=== PATIENT | female | born 1950 | race Caucasian/White ===

== ENCOUNTER 2018-02-28 06:40 | Day surgery (SDC) | payer MEDICARE ==
[~2018-02-28] VITALS: Ht 162.6 cm; Wt 95.3 kg
[~2018-02-28 06:40] MED LIST: ALEVE220 M2 PO; AMLODIPINE5 MG PO; AMOXICILLIN500 M1 OR; ANTIVERT PO; ASPIRIN325 MG PO; CELEBREX100 M1 PO; CLARITIN10 MG OR; FLORASTOR250 M1 PO; ISOSORB MONO120 MG PO; LIPITOR40 M1 PO; LOMOTIL2.5 MG PO; LOPRESSOR50 MG OR; LORTAB 10-325 M1 TAB PO; METHOCARBAMOL PO; METOPROL TAR25 M1 PO; METRONIDAZOL500 MG PO; NEXIUM20 M1 OR; NITROGLYCERIN; NITROSTAT0.3 MG SL; NITROSTAT0.4 MG SL; NORCO1 TA1 PO; ONDANSETRON4 MG PO; PANTOPRAZOLE SO40 MG PO; PERCOCET 5/325M1 TAB PO; PHENERGAN25 MG/TAB PO; PLAVIX75 MG OR; PRILOSEC20 MG OR; PROZAC20 M1 PO; RISEDRONATE SO150 MG PO; TRAMADOL HCL50 MG PO; ZOCOR40 MG OR; ZOFRAN ODT4 MG PO; [UNRECOGNIZED DRUG - OTHER] PO
[2018-02-28] MEDS ORDERED: BACK & BODY EXT1 TAB PO (06:50)
[2018-02-28] MEDS ORDERED: CLARITIN-D1 TA2 PO (06:50)
[2018-02-28 08:56] VITALS: BP 135/60
== END 2018-02-28 09:02 | disposition home or self-care (01) ==
LOC: ENDO 06:40
PROVIDERS: ATTEND Surgery
PROC: 0DJD8ZZ Inspection of Lower Intestinal Tract, Via Natural or Artificial Opening Endoscopic (ICD-10-PCS; principal; 2018-02-28)
DX: Z12.11 Encounter for screening for malignant neoplasm of colon (principal); K64.1 Second degree hemorrhoids; Z86.010 Personal history of colon polyps

== ENCOUNTER 2018-08-07 10:49 | Emergency (ER) | payer MEDICARE ==
[~2018-08-07] VITALS: Ht 162.6 cm; Wt 80.0 kg
[~2018-08-07 10:49] MED LIST changes: +BACK & BODY EXT1 TAB PO; +CLARITIN-D1 TA2 PO
[2018-08-07 12:00] VITALS: BP 137/68
== END 2018-08-07 12:00 | disposition home or self-care (01) ==
LOC: ED 10:49
DX: S80.811A Abrasion, right lower leg, initial encounter (principal); W54.0XXA Bitten by dog, initial encounter; Y93.89 Activity, other specified; Y92.007 Garden or yard of unspecified non-institutional (private) residence as the place of occurrence of the external cause

== ENCOUNTER 2019-02-24 11:03 | Observation (INO) | payer MEDICARE ==
[~2019-02-24] VITALS: Ht 162.6 cm; Wt 95.4 kg
--- NOTE | 2019-02-24 11:06 | NUR ---
PATIENT BACK TO ROOM FOR EXAM.
--- NOTE | 2019-02-24 11:40 | NUR ---
PATIENT MEDICATED WITH 4 MG OF ZOFRAN IV FOR NAUSEA, 0.4 SL NITRO, AND ASPIRIN 324 MG PO. PATIENT REPORTS LEFT SIDED CHEST PAIN FOR PAST COUPLE OF WEEKS WITH SOB AND PAIN RADIATING TO LEFT SHOULDER AND NECK. RATES PAIN 5/10. LUNG SOUNDS CLEAR BILATERALLY. PATIENT UPDATED ON WAIT TIME. WILL CONTINUE TO MONITOR. CALL LIGHT WITHIN REACH.
[2019-02-24 11:47] LABS: HEMATOCRIT 40.2 % (37.0-47.0); HEMOGLOBIN 13.3 g/dl (12.0-16.0); IMMATURE GRANULOCYTES 0.2 % (0.0-5.0); MEAN CELL VOLUME 96.9 fL CALC (80.0-100.0); MEAN CORPUSCULAR HGB CONC 33.1 g/L CALC (32.0-36.0); NEUT# 2.34 thou/uL (2.00-7.15); RED BLOOD COUNT 4.15 mill/uL (4.20-5.60); RED CELL DISTRI WIDTH 12.2 % (11.5-15.5)
[2019-02-24] MEDS ORDERED: METOPROL TAR25 MG PO (11:47)
[2019-02-24] MEDS ORDERED: ISOSORBIDE MON120 MG PO (11:47)
[2019-02-24] MEDS ORDERED: PROZAC10 MG PO (11:49)
[2019-02-24] MEDS ORDERED: PANTOPRAZOLE SO40 MG PO (11:50)
[2019-02-24] MEDS ORDERED: BUSPAR5 MG PO (11:50)
[2019-02-24 11:52] LABS: ALBUMIN 3.6 g/dL (3.2-5.0); ALKALINE PHOSPHATASE 71 u/l (38-126); ANION GAP 11 (6-22 (CALC)); BILIRUBIN, TOTAL 0.2 mg/dL (0.0-1.4); BUN 16 mg/dL (8-23); BUN/CREATININE RATIO 27 (12-20 (CALC)); CARBON DIOXIDE 25 mmol/l (22-30); CHLORIDE 107 mmol/l (95-108); CREATININE 0.6 mg/dL (0.5-1.0); GFR > 60 ML/MIN (>=60 (CALC)); GFR FOR AFR.AMER. > 60 ML/MIN (>=60 (CALC)); LIPASE 97 u/l (23-300); POTASSIUM 4.4 mmol/l (3.5-5.1); SGOT/AST 17 u/l (9-36); SODIUM 139 mmol/l (137-146); TOTAL PROTEIN 6.4 g/dL (6.3-8.2)
--- NOTE | 2019-02-24 12:23 | NUR ---
PATIENT REPORTS NO CHANGE IN LEFT SIDED CHEST PAIN. RATES 03/24. INFORMED. AWAITING ON NEW ORDERS.
--- NOTE | 2019-02-24 12:27 | NUR ---
AT BEDSIDE TO DISCUSS RESULTS AND PLAN OF CARE.
--- NOTE | 2019-02-24 12:35 | NUR ---
PATIENT MEDICATED WITH 0.4 MG SL NITRO AND SECOND EKG COMPLETED.
--- NOTE | 2019-02-24 13:30 | NUR ---
PATIENT RESTING ON STRETCHER. NO SIGNS OF DISTRESS NOTED. FRIEND AT BEDSIDE.
--- NOTE | 2019-02-24 14:15 | NUR ---
PATIENT REPORT NO CHEST PAIN AT THIS TIME. INFORMED OF ADMIT. VERBAL UNDERSTANDING.
--- NOTE | 2019-02-24 14:23 | NUR ---
REPORT GIVEN TO [facility].
--- NOTE | 2019-02-24 14:25 | NUR ---
PATIENT TRANSPORTED TO [facility] VIA STRETCHER WITH TELE IN PLACE, BELONGINGS SENT UP WITH PATIENT. JU[facility] D[facility] AT BEDSIDE. CARE RELINQUISHED.
[2019-02-24 14:30] VITALS: BP 119/63
--- NOTE | 2019-02-24 15:00 | NUR ---
ASSESSMENT DONE. RESPS EVEN AND UNLABORED. PT IS A&O X3. PT STATED PAIN 2/10 LEFT SIDE CHEST. PT STATED SHE FEELS NAUSEOUS. TELE IN PLACE. NOTIIFIED RE: PT C/O DR. LINARES AT BEDSIDE TO ASSESS PT. PT STATED SHE HAS BEEN HAVING BLACK STOOL. SAFETY PRECAUTIONS REINFORCED AND CALL LIGHT IN REACH.
[2019-02-24 17:09] VITALS: BP 118/54
--- NOTE | 2019-02-24 19:00 | NUR ---
RECIEVED REPORT FROM DAY SHIFT NURSE. PT RESTING IN BED WATCHING TV. NO NEEDS A THIS TIME. CALL STACY IN REACH. WILL CONTINUE TO MONITOR.
[2019-02-24 19:40] VITALS: BP 107/61
--- NOTE | 2019-02-24 19:50 | NUR ---
PT RESTING IN BED WATCHING TV. PT IS A&O x3. ASSESMENT COMPLETED AT THIS TIME. TRACE EDEMA TO LOWER EXTREMITIES. NO NEEDS A THIS TIME. WILL CONTINUE TO MONITOR
--- NOTE | 2019-02-24 20:07 | NUR ---
PT C/O OF EPIGASTRIC PAIN THAT RADIATES INTO CHEST. PT THINK ITS HER STOMACH AND NON CARDIAC. WOULD LIKE SOMETHING. DR SOLIS NOTIFIED AND NEW ORDERS RECIEVED. WILL CONTINUE TO MONITOR.
--- NOTE | 2019-02-24 21:00 | NUR ---
PT MEDICATE PER ORDER FOR EPIGASTRIC PAIN. CALL STACY IN REACH. WILL CONTINUE TO MONITOR.
[2019-02-24 23:45] VITALS: BP 105/59
--- NOTE | 2019-02-25 | NUR ---
PT RESTING IN BED WITH EYES CLOSED. NO S/S OF DISTRESS NOTED. CALL STACY IN REACH. WILL CONTINUE TO MONITOR.
--- NOTE | 2019-02-25 04:00 | NUR ---
PT STATES SHE GOT RELIEF FROM PEPCID AND WAS ABLE TO SLEEP WELL. NO NEED AT THIS TIME. CALL STACY IN REACH. WILL CONTINUE TO MONITOR.
[2019-02-25 04:42] VITALS: BP 117/54
[2019-02-25 05:53] LABS: HEMATOCRIT 39.6 % (37.0-47.0); IMMATURE GRANULOCYTES 0.2 % (0.0-5.0); MEAN CELL VOLUME 97.3 fL CALC (80.0-100.0); MEAN CORPUSCULAR HGB 31.9 pG CALC (26.0-32.0); MEAN CORPUSCULAR HGB CONC 32.8 g/L CALC (32.0-36.0); NEUT# 2.21 thou/uL (2.00-7.15); RED BLOOD COUNT 4.07 mill/uL (4.20-5.60); RED CELL DISTRI WIDTH 12.4 % (11.5-15.5)
[2019-02-25 06:04] LABS: ALBUMIN 3.6 g/dL (3.2-5.0); ALKALINE PHOSPHATASE 70 u/l (38-126); AMYLASE 53 u/l (30-110); ANION GAP 11 (6-22 (CALC)); BILIRUBIN, TOTAL 0.3 mg/dL (0.0-1.4); BUN 15 mg/dL (8-23); BUN/CREATININE RATIO 22 (12-20 (CALC)); CARBON DIOXIDE 27 mmol/l (22-30); CHLORIDE 107 mmol/l (95-108); CREATININE 0.7 mg/dL (0.5-1.0); GFR > 60 ML/MIN (>=60 (CALC)); GFR FOR AFR.AMER. > 60 ML/MIN (>=60 (CALC)); LIPASE 85 u/l (23-300); MAGNESIUM 1.8 mg/dL (1.6-2.3); POTASSIUM 4.2 mmol/l (3.5-5.1); SGOT/AST 19 u/l (9-36); SODIUM 140 mmol/l (137-146); TOTAL PROTEIN 6.3 g/dL (6.3-8.2)
--- NOTE | 2019-02-25 07:00 | NUR ---
SHIFT CHANGE REPORT, PT AWAKE ALERT AND ORIENTED RESTING IN BED, C/O ACHING HEADACHE @ 05/24, DR SOLIS NOTIFIED AND GAVE ORDERS, TELE MONITOR IN PLACE, PAIN CONCERN ADDRESSED, CALL STACY IN REACH.
[2019-02-25 08:42] VITALS: BP 127/52
[2019-02-25 09:14] LABS: CHOLESTEROL HDL RATIO 3.8 (<4.4 (CALC))
[2019-02-25 12:08] VITALS: BP 121/66
--- NOTE | 2019-02-25 12:18 | NUR ---
RELAXING IN BED TALKING TO VISITING FAMILY MEMBER, C/O NAUSEA AND ALSO STATED SHE NEEDED ANTIEMETIC BEFORE SHE ATE MEAL TO PREVENT NAUSED. CONCERN ADDRESSED WILL CONTINUE TO MONITOR.
--- NOTE | 2019-02-25 16:07 | NUR ---
RELAXING IN ROOM, ALL NEEDS ADDRESSED.
[2019-02-25 17:39] VITALS: BP 127/55
--- NOTE | 2019-02-25 19:00 | NUR ---
RECIEVED REPORT FROM DAY NURSE PT RESTING IN THE RECLINER. NO NEEDS AT THIS TIME. CALL STACY IN REACH. WILL KOURTNEY NUE TO MONITOR.
[2019-02-25 19:39] VITALS: BP 111/67
--- NOTE | 2019-02-25 22:46 | NUR ---
PT RESTING IN BED WITH EYES CLOESED. WAKES WITH VERBAL STIMULI. MEDICATED PER ORDER. ASSESMENT COMPLETED AT THIS TIME. NO NEEDS AT THIS TIME, CALL STACY IN REACH. WILL CONTINUE TO MONITOR.
[2019-02-26] VITALS: BP 113/65
--- NOTE | 2019-02-26 | NUR ---
PT RESTING IN BED WITH EYES CLOSED, NO S/S OF DISTRESS NOTED. WILL CONTINUE TO MONITOR
--- NOTE | 2019-02-26 04:00 | NUR ---
PT APPEARS ASLEEP AT THIS TIME. CALL REGIS IN [facility]. WILL CONTINUE TO MONITOR.
[2019-02-26 04:25] VITALS: BP 115/63
[2019-02-26 05:20] LABS: HEMATOCRIT 41.3 % (37.0-47.0); HEMOGLOBIN 13.6 g/dl (12.0-16.0); IMMATURE GRANULOCYTES 0.2 % (0.0-5.0); MEAN CELL VOLUME 98.1 fL CALC (80.0-100.0); MEAN CORPUSCULAR HGB 32.3 pG CALC (26.0-32.0); MEAN CORPUSCULAR HGB CONC 32.9 g/L CALC (32.0-36.0); NEUT# 2.65 thou/uL (2.00-7.15); RED BLOOD COUNT 4.21 mill/uL (4.20-5.60); RED CELL DISTRI WIDTH 12.3 % (11.5-15.5)
[2019-02-26 05:54] LABS: ANION GAP 12 (6-22 (CALC)); BUN 16 mg/dL (8-23); BUN/CREATININE RATIO 20 (12-20 (CALC)); CARBON DIOXIDE 28 mmol/l (22-30); CHLORIDE 106 mmol/l (95-108); CREATININE 0.8 mg/dL (0.5-1.0); GFR > 60 ML/MIN (>=60 (CALC)); GFR FOR AFR.AMER. > 60 ML/MIN (>=60 (CALC)); MAGNESIUM 2.1 mg/dL (1.6-2.3); SODIUM 141 mmol/l (137-146)
[2019-02-26 06:06] LABS: POTASSIUM 5.4 mmol/l (3.5-5.1)
--- NOTE | 2019-02-26 07:00 | NUR ---
SHIFT CHANGE REPORT, PT SLEEPING BUT AWAKENED TO VERBAL STIMULI, C/O HEADACHE AND MEDICATED, TELE MONITOR IN PLACE, CALL STACY IN REACH.
[2019-02-26 07:45] VITALS: BP 109/56
[2019-02-26 11:11] VITALS: BP 101/58
--- NOTE | 2019-02-26 12:27 | NUR ---
RESTING IN BED AND HAVING MEAL, ALL NEEDS ADDRESSED.
[2019-02-26] MEDS ORDERED: ISOSORBIDE MONO30 MG PO (12:36)
[2019-02-26] MEDS ORDERED: PANTOPRAZOLE SO40 M1 PO (12:37)
[2019-02-26] MEDS ORDERED: NITROGLYCE0.4 MG/SPR SL (13:44)
[2019-02-26] MEDS ORDERED: ZOFRAN4 MG PO (15:37)
--- NOTE | 2019-02-26 15:52 | NUR ---
Discharge instructions given. Patient verbalizes understanding of same. Discharged in good condition via Wheelchair to Home with family. All belongings sent with pt.
[2019-02-26 16:12] LABS: URINE BILIRUBIN - DIPSTICK NEGATIVE (NEGATIVE); URINE BLOOD DIPSTICK NEGATIVE (NEGATIVE); URINE COLOR YELLOW; URINE GLUCOSE - DIPSTICK NEGATIVE (NEGATIVE); URINE KETONE NEGATIVE (NEGATIVE); URINE LEUK ESTERASE NEGATIVE (NEGATIVE); URINE NITRITE - DIPSTICK NEGATIVE (Negative); URINE PH 5.5 (4.5-8.0); URINE PROTEIN - DIPSTICK NEGATIVE (NEG-TRACE); URINE UROBILINOGEN - DIPSTICK 0.2 E.U./dL (0.2)
== END 2019-02-26 15:42 | disposition home or self-care (01) ==
LOC: ED 11:03 → ED-I 12:18 → ED 13:26 → MS2 13:27
PROVIDERS: Family Medicine; Nurse Practitioner Family; ADMIT Internal Medicine Nephrology; ATTEND Internal Medicine Nephrology
DX: R07.9 Chest pain, unspecified (principal); K22.4 Dyskinesia of esophagus; I25.119 Atherosclerotic heart disease of native coronary artery with unspecified angina pectoris; I10 Essential (primary) hypertension; F41.8 Other specified anxiety disorders; E78.5 Hyperlipidemia, unspecified; K59.00 Constipation, unspecified; Z23 Encounter for immunization; Z87.11 Personal history of peptic ulcer disease; Z95.5 Presence of coronary angioplasty implant and graft; Z86.73 Personal history of transient ischemic attack (TIA), and cerebral infarction without residual deficits
CPT/HCPCS: J1650

== ENCOUNTER 2019-03-22 14:40 | Inpatient (IN) | payer MEDICARE ==
[~2019-03-22] VITALS: Ht 162.6 cm; Wt 94.0 kg
[~2019-03-22 14:40] MED LIST changes: +BUSPAR5 MG PO; +ISOSORBIDE MON120 MG PO; +ISOSORBIDE MONO30 MG PO; +METOPROL TAR25 MG PO; +NITROGLYCE0.4 MG/SPR SL; +PANTOPRAZOLE SO40 M1 PO; +PROZAC10 MG PO; +ZOFRAN4 MG PO
[2019-03-22 15:21] LABS: HEMATOCRIT 39.7 % (37.0-47.0); HEMOGLOBIN 12.9 g/dl (12.0-16.0); IMMATURE GRANULOCYTES 0.3 % (0.0-5.0); MEAN CELL VOLUME 98.5 fL CALC (80.0-100.0); MEAN CORPUSCULAR HGB CONC 32.5 g/L CALC (32.0-36.0); NEUT# 6.36 thou/uL (2.00-7.15); RED BLOOD COUNT 4.03 mill/uL (4.20-5.60); RED CELL DISTRI WIDTH 12.2 % (11.5-15.5)
[2019-03-22 15:40] LABS: ANION GAP 11 (6-22 (CALC)); BUN 16 mg/dL (8-23); BUN/CREATININE RATIO 27 (12-20 (CALC)); CARBON DIOXIDE 27 mmol/l (22-30); CHLORIDE 106 mmol/l (95-108); CREATININE 0.6 mg/dL (0.5-1.0); GFR > 60 ML/MIN (>=60 (CALC)); GFR FOR AFR.AMER. > 60 ML/MIN (>=60 (CALC)); POTASSIUM 4.2 mmol/l (3.5-5.1); SODIUM 139 mmol/l (137-146)
[2019-03-22 17:50] VITALS: BP 166/83
[2019-03-22 18:37] LABS: URINE BILIRUBIN - DIPSTICK NEGATIVE (NEGATIVE); URINE BLOOD DIPSTICK NEGATIVE (NEGATIVE); URINE COLOR YELLOW; URINE GLUCOSE - DIPSTICK NEGATIVE (NEGATIVE); URINE KETONE NEGATIVE (NEGATIVE); URINE NITRITE - DIPSTICK NEGATIVE (Negative); URINE PROTEIN - DIPSTICK NEGATIVE (NEG-TRACE); URINE UROBILINOGEN - DIPSTICK 0.2 E.U./dL (0.2)
[2019-03-22 18:38] LABS: URINE LEUK ESTERASE SMALL (NEGATIVE)
[2019-03-22 18:57] LABS: URINE RBC 0-2 RBC/hpf (0-5); URINE SQUAMOUS EPITHELIAL CELL FEW EPI/hpf (0-FEW)
[2019-03-22 21:42] VITALS: BP 136/79
[2019-03-23 00:13] VITALS: BP 141/71
[2019-03-23 04:07] VITALS: BP 160/83
[2019-03-23 05:20] LABS: HEMATOCRIT 41.2 % (37.0-47.0); HEMOGLOBIN 13.6 g/dl (12.0-16.0); IMMATURE GRANULOCYTES 0.9 % (0.0-5.0); MEAN CELL VOLUME 96.5 fL CALC (80.0-100.0); MEAN CORPUSCULAR HGB 31.9 pG CALC (26.0-32.0); NEUT# 5.55 thou/uL (2.00-7.15); RED BLOOD COUNT 4.27 mill/uL (4.20-5.60); RED CELL DISTRI WIDTH 12.1 % (11.5-15.5)
[2019-03-23 05:23] LABS: ALBUMIN 3.6 g/dL (3.2-5.0); ALKALINE PHOSPHATASE 91 u/l (38-126); AMYLASE 49 u/l (30-110); ANION GAP 13 (6-22 (CALC)); BILIRUBIN, TOTAL 0.4 mg/dL (0.0-1.4); BUN 10 mg/dL (8-23); BUN/CREATININE RATIO 22 (12-20 (CALC)); CARBON DIOXIDE 23 mmol/l (22-30); CHLORIDE 107 mmol/l (95-108); CREATININE 0.5 mg/dL (0.5-1.0); GFR > 60 ML/MIN (>=60 (CALC)); GFR FOR AFR.AMER. > 60 ML/MIN (>=60 (CALC)); LIPASE 58 u/l (23-300); MAGNESIUM 1.8 mg/dL (1.6-2.3); POTASSIUM 4.5 mmol/l (3.5-5.1); SGOT/AST 19 u/l (9-36); SODIUM 138 mmol/l (137-146); TOTAL PROTEIN 6.6 g/dL (6.3-8.2)
[2019-03-23 08:43] VITALS: BP 151/62
[2019-03-23] MEDS ORDERED: NITROSTAT0.4 MG SL (11:33)
[2019-03-23] MEDS ORDERED: ISOSORB MONO30 MG PO (11:34)
[2019-03-23] MEDS ORDERED: EXCEDRIN PO (11:35)
[2019-03-23] MEDS ORDERED: MELATONIN5 MG PO (11:36)
[2019-03-23 11:53] VITALS: BP 160/70
[2019-03-23 15:10] VITALS: BP 123/64
[2019-03-23 19:40] VITALS: BP 121/71
[2019-03-24] VITALS: BP 133/71
[2019-03-24 04:13] VITALS: BP 144/81
[2019-03-24 05:20] LABS: HEMOGLOBIN 12.6 g/dl (12.0-16.0); IMMATURE GRANULOCYTES 0.9 % (0.0-5.0); MEAN CELL VOLUME 97.2 fL CALC (80.0-100.0); MEAN CORPUSCULAR HGB 32.2 pG CALC (26.0-32.0); MEAN CORPUSCULAR HGB CONC 33.2 g/L CALC (32.0-36.0); NEUT# 11.22 thou/uL (2.00-7.15); RED BLOOD COUNT 3.91 mill/uL (4.20-5.60); RED CELL DISTRI WIDTH 12.6 % (11.5-15.5)
[2019-03-24 05:45] LABS: ALBUMIN 3.4 g/dL (3.2-5.0); ALKALINE PHOSPHATASE 78 u/l (38-126); ANION GAP 12 (6-22 (CALC)); BUN 15 mg/dL (8-23); BUN/CREATININE RATIO 29 (12-20 (CALC)); CARBON DIOXIDE 24 mmol/l (22-30); CHLORIDE 108 mmol/l (95-108); CREATININE 0.5 mg/dL (0.5-1.0); GFR > 60 ML/MIN (>=60 (CALC)); GFR FOR AFR.AMER. > 60 ML/MIN (>=60 (CALC)); MAGNESIUM 1.9 mg/dL (1.6-2.3); POTASSIUM 4.7 mmol/l (3.5-5.1); SGOT/AST 15 u/l (9-36); SODIUM 139 mmol/l (137-146); TOTAL PROTEIN 6.2 g/dL (6.3-8.2)
[2019-03-24 05:47] LABS: BILIRUBIN, TOTAL 0.2 mg/dL (0.0-1.4)
[2019-03-24 07:40] VITALS: BP 137/63
[2019-03-24 11:09] VITALS: BP 142/64
[2019-03-24] MEDS ORDERED: MEDDOSEPAK PO (14:48)
[2019-03-24] MEDS ORDERED: DOXYCYCL HYC100 MG PO (14:48)
[2019-03-24] MEDS ORDERED: COMBIVENT RESPIMAT IN (14:49)
== END 2019-03-24 15:16 | disposition home or self-care (01) | DRG 190 ==
LOC: ED 14:40 → ED-I 15:56 → ED 16:09 → MS2 16:10
PROVIDERS: Family Medicine; ADMIT Internal Medicine Nephrology; ATTEND Internal Medicine Nephrology
DX: J44.1 Chronic obstructive pulmonary disease with (acute) exacerbation (principal); J18.9 Pneumonia, unspecified organism; J44.0 Chronic obstructive pulmonary disease with (acute) lower respiratory infection; I10 Essential (primary) hypertension; I25.10 Atherosclerotic heart disease of native coronary artery without angina pectoris; F41.8 Other specified anxiety disorders; K21.9 Gastro-esophageal reflux disease without esophagitis; M19.90 Unspecified osteoarthritis, unspecified site; Z86.73 Personal history of transient ischemic attack (TIA), and cerebral infarction without residual deficits; Z95.5 Presence of coronary angioplasty implant and graft
CPT/HCPCS: G0378; J1650

== ENCOUNTER 2020-09-18 19:12 | Emergency (ER) | payer MEDICARE ==
[~2020-09-18] VITALS: Ht 162.6 cm; Wt 90.0 kg
[~2020-09-18 19:12] MED LIST changes: +COMBIVENT RESPIMAT IN; +DOXYCYCL HYC100 MG PO; +EXCEDRIN PO; +ISOSORB MONO30 MG PO; +MEDDOSEPAK PO; +MELATONIN5 MG PO
[2020-09-18] MEDS ORDERED: TRAMADOL HYDROC50 MG PO (21:31)
[2020-09-18 21:45] VITALS: BP 158/52
== END 2020-09-18 21:50 | disposition home or self-care (01) ==
LOC: ED 19:12
DX: M47.817 Spondylosis without myelopathy or radiculopathy, lumbosacral region (principal); M17.12 Unilateral primary osteoarthritis, left knee; I10 Essential (primary) hypertension; I25.10 Atherosclerotic heart disease of native coronary artery without angina pectoris; I25.2 Old myocardial infarction; K21.9 Gastro-esophageal reflux disease without esophagitis; Z95.5 Presence of coronary angioplasty implant and graft

== ENCOUNTER 2021-10-18 12:17 | Emergency (ER) | payer MEDICARE ==
[~2021-10-18] VITALS: Ht 162.6 cm; Wt 100.0 kg
[~2021-10-18 12:17] MED LIST changes: +B COMPLE2 PO; +TRAMADOL HYDROC50 MG PO; +VITA D-1000 PO
[2021-10-18 12:47] LABS: HEMATOCRIT 43.9 % (37.0-47.0); HEMOGLOBIN 14.4 g/dl (12.0-16.0); IMMATURE GRANULOCYTES 0.6 % (0.0-5.0); MEAN CELL VOLUME 99.8 fL CALC (80.0-100.0); MEAN CORPUSCULAR HGB 32.7 pG CALC (26.0-32.0); MEAN CORPUSCULAR HGB CONC 32.8 g/dL CAL (32.0-36.0); NEUT# 5.94 thou/uL (2.00-7.15); RED BLOOD COUNT 4.4 mill/uL (4.20-5.60); RED CELL DISTRI WIDTH 12.4 % (11.5-15.5)
[2021-10-18 13:05] LABS: ALBUMIN 3.7 g/dL (3.2-5.0); ALKALINE PHOSPHATASE 62 u/l (38-126); ANION GAP 10 (6-22 (CALC)); BILIRUBIN, TOTAL 0.4 mg/dL (0.0-1.4); BUN 18 mg/dL (8-23); BUN/CREATININE RATIO 25 (12-20 (CALC)); CARBON DIOXIDE 26 mmol/l (22-30); CHLORIDE 106 mmol/l (95-108); CREATININE 0.7 mg/dL (0.5-1.0); GFR > 60 ML/MIN (>=60 (CALC)); GFR FOR AFR.AMER. > 60 ML/MIN (>=60 (CALC)); LIPASE 98 u/l (23-300); POTASSIUM 3.9 mmol/l (3.5-5.1); SGOT/AST 25 u/l (9-36); SODIUM 139 mmol/l (137-146); TOTAL PROTEIN 7.2 g/dL (6.3-8.2)
[2021-10-18] MEDS ORDERED: GUAIFENESIN AC PO (13:53)
[2021-10-18] MEDS ORDERED: ALBUTEROL SUL0.083 % IN (13:53)
[2021-10-18 14:11] VITALS: BP 161/71
== END 2021-10-18 14:40 | disposition home or self-care (01) ==
LOC: ED 12:17
DX: J45.909 Unspecified asthma, uncomplicated (principal); I10 Essential (primary) hypertension; I25.10 Atherosclerotic heart disease of native coronary artery without angina pectoris; K21.9 Gastro-esophageal reflux disease without esophagitis; I25.2 Old myocardial infarction; Z86.73 Personal history of transient ischemic attack (TIA), and cerebral infarction without residual deficits; Z95.5 Presence of coronary angioplasty implant and graft; Z20.822 Contact with and (suspected) exposure to COVID-19

== ENCOUNTER 2022-05-20 11:14 | Emergency (ER) | payer MEDICARE ==
[~2022-05-20] VITALS: Ht 162.6 cm; Wt 100.0 kg
[~2022-05-20 11:14] MED LIST changes: +ALBUTEROL SUL0.083 % IN; +GUAIFENESIN AC PO
[2022-05-20 12:02] LABS: HEMATOCRIT 42.9 % (37.0-47.0); HEMOGLOBIN 13.9 g/dl (12.0-16.0); IMMATURE GRANULOCYTES 0.2 % (0.0-5.0); MEAN CELL VOLUME 101.4 fL CALC (80.0-100.0); MEAN CORPUSCULAR HGB 32.9 pG CALC (26.0-32.0); MEAN CORPUSCULAR HGB CONC 32.4 g/dL CAL (32.0-36.0); NEUT# 1.99 thou/uL (2.00-7.15); RED BLOOD COUNT 4.23 mill/uL (4.20-5.60); RED CELL DISTRI WIDTH 12.3 % (11.5-15.5)
[2022-05-20 12:09] LABS: ALBUMIN 3.9 g/dL (3.2-5.0); ALKALINE PHOSPHATASE 51 u/l (38-126); ANION GAP 9 (6-22 (CALC)); BUN 15 mg/dL (8-23); BUN/CREATININE RATIO 22 (12-20 (CALC)); CARBON DIOXIDE 24 mmol/l (22-30); CHLORIDE 111 mmol/l (95-108); CREATININE 0.7 mg/dL (0.5-1.0); GFR FOR AFR.AMER. > 60 ML/MIN (>=60 (CALC)); GFR OTHER RACES > 60 ML/MIN (>=60 (CALC)); POTASSIUM 4.4 mmol/l (3.5-5.1); SGOT/AST 26 u/l (9-36); SODIUM 139 mmol/l (137-146)
[2022-05-20 12:11] LABS: BILIRUBIN, TOTAL 0.4 mg/dL (0.0-1.4)
[2022-05-20] MEDS ORDERED: ZOFRAN4 MG/TAB PO (14:04)
[2022-05-20 14:39] VITALS: BP 132/51
== END 2022-05-20 14:43 | disposition home or self-care (01) ==
LOC: ED 11:14
PROVIDERS: Family Medicine
DX: S06.0X0A Concussion without loss of consciousness, initial encounter (principal); M25.512 Pain in left shoulder; I10 Essential (primary) hypertension; I25.10 Atherosclerotic heart disease of native coronary artery without angina pectoris; I25.2 Old myocardial infarction; K21.9 Gastro-esophageal reflux disease without esophagitis; W18.39XA Other fall on same level, initial encounter; Y92.008 Other place in unspecified non-institutional (private) residence as the place of occurrence of the external cause; Z95.5 Presence of coronary angioplasty implant and graft; Z86.73 Personal history of transient ischemic attack (TIA), and cerebral infarction without residual deficits

== ENCOUNTER 2023-02-09 11:58 | Emergency (ER) | payer MEDICARE ==
[~2023-02-09 11:58] MED LIST changes: +ZOFRAN4 MG/TAB PO
== END 2023-02-09 14:26 | disposition home or self-care (01) ==
LOC: ED 11:58 → LWOBS 12:40
DX: Z53.21 Procedure and treatment not carried out due to patient leaving prior to being seen by health care provider (principal)

== ENCOUNTER 2023-06-07 16:38 | Emergency (ER) | payer MEDICARE ==
[~2023-06-07] VITALS: Ht 162.6 cm; Wt 95.0 kg
[2023-06-07 17:00] VITALS: BP 124/73
[2023-06-07 17:17] VITALS: BP 98/58
[2023-06-07 17:30] VITALS: BP 114/55
[2023-06-07 17:46] VITALS: BP 141/47
[2023-06-07] MEDS ORDERED: NAPROXEN500 MG PO (17:56)
[2023-06-07] MEDS ORDERED: METHOCARBAMOL500 MG PO (17:56)
[2023-06-07] MEDS ORDERED: MEDDOSEPAK PO (17:56)
[2023-06-07 18:15] VITALS: BP 126/75
[2023-06-07 18:16] VITALS: BP 126/75
== END 2023-06-07 18:43 | disposition home or self-care (01) ==
LOC: ED 16:38
DX: S70.02XA Contusion of left hip, initial encounter (principal); M51.17 Intervertebral disc disorders with radiculopathy, lumbosacral region; I10 Essential (primary) hypertension; I25.10 Atherosclerotic heart disease of native coronary artery without angina pectoris; I25.2 Old myocardial infarction; W17.89XA Other fall from one level to another, initial encounter; Y92.009 Unspecified place in unspecified non-institutional (private) residence as the place of occurrence of the external cause; Z86.73 Personal history of transient ischemic attack (TIA), and cerebral infarction without residual deficits; Z95.5 Presence of coronary angioplasty implant and graft

== ENCOUNTER 2024-05-24 12:35 | Observation (INO) | payer MEDICARE ==
[~2024-05-24] VITALS: Ht 157.5 cm; Wt 94.4 kg
[2024-05-24] VITALS (22 sets, daily range): BP systolic 124–172; BP diastolic 42–83
[~2024-05-24 12:35] MED LIST changes: +KEFLEX500 MG PO; +METHOCARBAMOL500 MG PO; +MUPIROCIN2 % EX; +NAPROXEN500 MG PO; +TRAMADOL HYDROC50 M1 PO
--- NOTE | 2024-05-24 12:38 | NUR ---
PATIENT TO ROOM 9 VIA WHEELCHAIR
[2024-05-24] MEDS ORDERED: NITROGLYCERIN 0.4 MG/TAB SL ONE (12:50)
[2024-05-24] MEDS ORDERED: ASPIRIN 81 MG/TAB PO ONE (12:50)
[2024-05-24 13:08] LABS: BASO% 0.4 % (0-3); EOS% 1.2 % (0-8); HEMOGLOBIN 13.6 g/dl (12.0-16.0); LYMPH% 46.2 % (15-41); MEAN CELL VOLUME 98.8 fL CALC (80.0-100.0); MEAN CORPUSCULAR HGB 32.8 pG CALC (26.0-32.0); MEAN CORPUSCULAR HGB CONC 33.2 g/dL CAL (32.0-36.0); MONO% 9.3 % (2-13); NEUT# 2.41 thou/uL (2.00-7.15); NEUT% 42.9 % (42-76); RED BLOOD COUNT 4.15 mill/uL (4.20-5.60); RED CELL DISTRI WIDTH 12.3 % (11.5-15.5)
[2024-05-24] MEDS ORDERED: PROTONIX40 M2 PO (13:11)
[2024-05-24 13:25] LABS: ALBUMIN 3.8 g/dL (3.2-5.0); ALKALINE PHOSPHATASE 59 u/l (38-126); ANION GAP 9 (6-22 (CALC)); BILIRUBIN, TOTAL 0.6 mg/dL (0.02-1.3); BUN 14 mg/dL (8-23); BUN/CREATININE RATIO 16 (12-20 (CALC)); CARBON DIOXIDE 23 mmol/l (22-30); CHLORIDE 112 mmol/l (95-108); CREATININE 0.9 mg/dL (0.5-1.0); ESTIMATED GFR 68 ML/MIN (>=90 (CALC)); LIPASE 79 u/l (23-300); POTASSIUM 4.8 mmol/l (3.5-5.1); SGOT/AST 31 u/l (9-36); SODIUM 139 mmol/l (137-146); TOTAL PROTEIN 6.7 g/dL (6.3-8.2)
--- NOTE | 2024-05-24 13:59 | NUR ---
PT AMBULATE TO ER BATHROOM WITH STEADY GAIT. URINE CUP PROVIDED.
--- NOTE | 2024-05-24 14:08 | NUR ---
PT REPORTS TO THIS NURSE GENERALIZED FATIGUE, COUGH, AND CONGESTION. PTS FAMILY LANIE HAS TESTED POSITIVE FOR MULTIPLE VIRUS IN THE ER TODAY. IS MADE AWARE OF FINDINGA ND THIS NURSE HAS REQUESTED SWABS.
[2024-05-24 14:18] LABS: URINE BILIRUBIN - DIPSTICK Negative (NEGATIVE); URINE BLOOD DIPSTICK Negative (NEGATIVE); URINE GLUCOSE - DIPSTICK Negative (NEGATIVE); URINE KETONE Negative (NEGATIVE); URINE LEUK ESTERASE Trace (NEGATIVE); URINE NITRITE - DIPSTICK Negative (Negative); URINE PROTEIN - DIPSTICK Negative (NEG-TRACE); URINE UROBILINOGEN - DIPSTICK 0.2 E.U./dL (0.2)
[2024-05-24 14:19] LABS: URINE COLOR Yellow
--- NOTE | 2024-05-24 15:18 | NUR ---
PT RESTING IN BED. VSS. FAMILY AT BEDSIDE. NO DISTRESS NOTED. PT REPORTS NO CURRENT CHEST PAIN.
--- NOTE | 2024-05-24 16:43 | NUR ---
PT EDUCATED ON BEING ADMITED TO [facility]. PT STATES UNDERSTANDING. VSS. PT REPORTS NO CURRENT CHEST PAIN.
[2024-05-24] MEDS ORDERED: MAGNESIUM HYDROXIDE 30 ML UDC PO PRN (17:30)
[2024-05-24] MEDS ORDERED: MORPHINE SULFATE 4 MG/ML VIAL IV PRN (17:30)
[2024-05-24] MEDS ORDERED: NITROGLYCERIN 0.4 MG/TAB SL PRN (17:30)
[2024-05-24] MEDS ORDERED: SODIUM CHLORIDE 0.9% 1,000 ML IV PRN (17:30)
[2024-05-24] MEDS ORDERED: ACETAMINOPHEN 325 MG/TAB PO PRN (17:30)
--- NOTE | 2024-05-24 17:38 | NUR ---
PT RESTING IN BED. VSS. NO DISTRESS NOTED.
--- NOTE | 2024-05-24 18:10 | NUR ---
PT REPORT CALLED AND GIVEN TO TEE ON MED SURG.
--- NOTE | 2024-05-24 20:00 | NUR ---
BEDSIDE SHIFT REPORT COMPLETED. RESP EVEN AND UNLABORED. DENIES CHEST PAIN. CALL LIGHT IN REACH.
[2024-05-24] MEDS ORDERED: METOPROLOL TARTRATE 25 MG/TAB PO SCH (21:00)
[2024-05-24] MEDS ORDERED: ATORVASTATIN CALCIUM 40 MG/TAB PO SCH (21:00)
[2024-05-24] MEDS ORDERED: ENOXAPARIN SODIUM 40 MG/0.4 ML SYR SC SCH (21:00)
[2024-05-24] MEDS ORDERED: GABAPENTIN 300 MG/CAP PO SCH (21:00)
[2024-05-25] VITALS: BP 121/50
--- NOTE | 2024-05-25 | NUR ---
PATIENT HAD A FEW MINUTES OF HEART RATE IN 170S.. PATIENT WAS IN THE BATHROOM AND THE WHITE LEAD WAS NOT CONNECTED. RECONNECTED LEAD, GAVE BEDTIME METOPROLOL AND PRN MORPHINE, HR RETURNED TO NORMAL RATE. PATIENT WAS ASYMPTOMATIC. MD CALLED TO DO TELEHEALTH CARDIO ASSESSMENT. WAS UNABLE TO GET TELEHEALTH TV TO WORK PROPERLY.
[2024-05-25 00:16] VITALS: BP 121/50
[2024-05-25 04:00] VITALS: BP 134/37
[2024-05-25 04:08] VITALS: BP 134/37
[2024-05-25 05:40] LABS: BASO% 0.2 % (0-3); EOS% 2.1 % (0-8); HEMATOCRIT 41.3 % (37.0-47.0); HEMOGLOBIN 13.6 g/dl (12.0-16.0); LYMPH% 44.3 % (15-41); MEAN CELL VOLUME 101.5 fL CALC (80.0-100.0); MEAN CORPUSCULAR HGB 33.4 pG CALC (26.0-32.0); MEAN CORPUSCULAR HGB CONC 32.9 g/dL CAL (32.0-36.0); NEUT# 1.9 thou/uL (2.00-7.15); NEUT% 43.4 % (42-76); RED BLOOD COUNT 4.07 mill/uL (4.20-5.60); RED CELL DISTRI WIDTH 12.3 % (11.5-15.5)
--- NOTE | 2024-05-25 05:41 | NUR ---
RESTED WELL DURING NIGHT. NO OTHER EPISODE OF ELEVATED HEART RATE. CALL LIGHT IN REACH. DENIES CHEST PAIN.
[2024-05-25 05:57] LABS: ALBUMIN 3.6 g/dL (3.2-5.0); BILIRUBIN, TOTAL 0.5 mg/dL (0.02-1.3); CREATININE 0.7 mg/dL (0.5-1.0); MAGNESIUM 1.9 mg/dL (1.6-2.3); POTASSIUM 4.6 mmol/l (3.5-5.1); TOTAL PROTEIN 6.2 g/dL (6.3-8.2)
[2024-05-25 07:24] VITALS: BP 142/54
--- NOTE | 2024-05-25 08:00 | NUR ---
PT SITTING UP IN BED EATING BREAKFAST. PT IS ALERT AND ORIENTED X 3. PT HAS C/O HEADACHE AT THIS TIME PRN TYLENOL GIVEN. PT IV SITE CLEAN AND INTACT, SL. PT TELE ON WITH ALL LEADS ATTACHED. PT AMBULATES TO BATHROOM WITH STANDBY ASSIST FOR TOILETING NEEDS. PT HAS CALL LIGHT WITHIN REACH AND SAFETY MEASURES IN PLACE AT THIS TIME.
[2024-05-25] MEDS ORDERED: FLUoxetine HCL 10 MG/CAP PO SCH (09:00)
[2024-05-25] MEDS ORDERED: PANTOPRAZOLE SODIUM Sesquihydr 40 MG/TAB PO SCH (09:00)
[2024-05-25] MEDS ORDERED: ASPIRIN 81 MG/TAB PO SCH (09:00)
[2024-05-25] MEDS ORDERED: NITROSTAT0.4 MG SL (10:37)
[2024-05-25 10:42] VITALS: BP 147/62
--- NOTE | 2024-05-25 12:00 | NUR ---
PT SITTING UP IN BED EATING LUNCH. PT HAS NO C/O PAIN AT THIS TIME. PT HAS CALL LIGHT WITHIN REACH AND SAFETY MEASURES IN PLACE AT THIS TIME.
--- NOTE | 2024-05-25 13:32 | NUR ---
Discharge instructions given. Patient verbalizes understanding of same. Discharged in stable condition via Wheelchair to Home with family. All belongings sent with pt.
== END 2024-05-25 13:32 | disposition home or self-care (01) ==
LOC: ED 12:35 → ED-I 16:13 → ED 17:01 → MS2 17:02
PROVIDERS: Family Medicine; ADMIT Student in an Organized Health Care Education/Training Program; ATTEND Student in an Organized Health Care Education/Training Program
DX: R07.89 Other chest pain (principal); I10 Essential (primary) hypertension; E11.9 Type 2 diabetes mellitus without complications; J44.9 Chronic obstructive pulmonary disease, unspecified; I25.10 Atherosclerotic heart disease of native coronary artery without angina pectoris; F32.A Depression, unspecified; K21.9 Gastro-esophageal reflux disease without esophagitis; I25.2 Old myocardial infarction; Z86.73 Personal history of transient ischemic attack (TIA), and cerebral infarction without residual deficits; Z95.5 Presence of coronary angioplasty implant and graft; Z20.822 Contact with and (suspected) exposure to COVID-19
CPT/HCPCS: J1650